=== PATIENT | male | born 1975 | race Caucasian/White ===

== ENCOUNTER 2023-01-16 06:59 | Day surgery (SDC) | payer BC ==
[~2023-01-16 06:59] MED LIST: Acetaminophen 1,000 MG in Premix Bag 1 BAG IV SCH; Lactated Ringers 1,000 ML IV SCH; Pregabalin 75 MG Cap PO SCH; cefOXitin 2 GM in Sodium Chloride 0.9% 50 ML IV SCH
[2023-01-16] MEDS ORDERED: Albuterol 0.083% 2.5 MG/3 ML Neb Soln NEB PRN (07:26)
[2023-01-16] MEDS ORDERED: fentaNYL 50 MCG/ML SDV IVPUSH PRN (07:26)
[2023-01-16] MEDS ORDERED: Ondansetron 4 MG/2 ML SDV IVPUSH PRN (07:26)
[2023-01-16] MEDS ORDERED: Naloxone 0.4 MG/ML SDV IVPUSH PRN (07:26)
[2023-01-16] MEDS ORDERED: HYDROmorphone 1 MG/ML Syringe IVPUSH PRN (07:26)
[2023-01-16] MEDS ORDERED: Morphine 2 MG/ML SYRINGE IVPUSH PRN (07:26)
[2023-01-16] MEDS ORDERED: Metoclopramide 10 MG/2 ML SDV IVPUSH PRN (07:26)
[2023-01-16] MEDS ORDERED: droPERidol 5 MG/2 ML SDV IVPUSH PRN (07:26)
[2023-01-16] MEDS ORDERED: Ropivacaine 0.5% 5 MG/ML 30 ML SDV ONE (07:42)
[2023-01-16] MEDS ORDERED: Bupivacaine 0.25% 30 ML SDV ONE ×2 (07:42→07:46)
[2023-01-16] MEDS ORDERED: Dexamethasone 4 MG/ML 5 ML MDV ONE (07:45)
[2023-01-16] MEDS ORDERED: Rocuronium Bromide 50 MG/5 ML Syringe ONE (07:45)
[2023-01-16] MEDS ORDERED: Propofol 200 MG/20 ML SDV ONE (07:45)
[2023-01-16] MEDS ORDERED: Sugammadex Sodium 200 MG/2 ML VIAL ONE (07:45)
[2023-01-16] MEDS ORDERED: Ondansetron 4 MG/2 ML SDV ONE (07:45)
[2023-01-16] MEDS ORDERED: Ketorolac 30 MG/ML SDV ONE (07:45)
[2023-01-16] MEDS ORDERED: Lidocaine 2% 5 ML SDV ONE (07:45)
[2023-01-16] MEDS ORDERED: fentaNYL 100 MCG/2 ML SDV ONE ×2 (07:45→08:50)
[2023-01-16] MEDS ORDERED: EPINEPHrine 1 MG/1 ML Amp ONE (07:50)
[2023-01-16] MEDS ORDERED: cefOXitin 1 GM Vial ONE (08:32)
== END 2023-01-16 12:15 | disposition home or self-care (01) ==
LOC: MW.SDS 06:59
PROVIDERS: ATTEND Surgery
DX: K80.10 Calculus of gallbladder with chronic cholecystitis without obstruction (principal); E66.9 Obesity, unspecified; K21.9 Gastro-esophageal reflux disease without esophagitis; Z90.89 Acquired absence of other organs; Z98.890 Other specified postprocedural states; F17.210 Nicotine dependence, cigarettes, uncomplicated; Z68.34 Body mass index [BMI] 34.0-34.9, adult; Z79.899 Other long term (current) drug therapy
CPT/HCPCS: 47562; A9270; J0131; J0171; J0694; J1100; J1885; J2405; J2704; J2795; J3010; J3490; J7120; 00790; 64488